=== PATIENT | female | born 1975 | race Caucasian/White ===

== ENCOUNTER 2017-02-21 19:04 | Emergency (ER) | payer SELFPAY | END 2017-02-21 19:49 | disposition left against medical advice (07) | LOC: EDUNIT# 19:04 → ER 19:06 | DX: R51 Headache (principal) ==

== ENCOUNTER 2017-09-07 07:26 | Emergency (ER) | payer SELFPAY ==
[~2017-09-07] VITALS: Ht 154.9 cm; Wt 63.5 kg
--- OUTSIDE RECORDS SUMMARY | 2017-09-07 07:32 | XMS REPORT | Continuity of Care Document ---
Author Author [facility] Address Unknown Phone Unavailable Allergies Active Description Code Type Severity Reaction Onset Reported/Identified Relationship to Patient Clinical Status Yes Penicillins Drug Allergy 04/24/2011 Yes Penicillins Drug Allergy N/A N/A 04/24/2011 Medications There is no data. Problems Date Dx Coded Attending Type Code Diagnosis Diagnosed By 11/08/2008 V74.5 visit for: screening exam bact/spirochetal venereal disease 11/08/2008 V74.5 visit for: screening exam bact/spirochetal venereal disease 11/08/2008 VIK MATTSON DO V74.5 visit for: screening exam bact/spirochetal venereal disease 11/08/2008 V74.5 visit for: screening exam bact/spirochetal venereal disease 11/08/2008 ULICES DOUGLAS APRN V74.5 visit for: screening exam bact/spirochetal venereal disease 11/08/2008 VIK MATTSON DO V74.5 visit for: screening exam bact/spirochetal venereal disease 11/08/2008 EL SPRINGER PSYD V74.5 visit for: screening exam bact/spirochetal venereal disease 04/24/2011 616.10 Vaginitis Vulvovaginitis Unspecified 04/24/2011 V65.45 Counseling - Std 04/24/2011 V69.5 BEHAVIOR INSOMNIA OF CHILDHOOD 04/24/2011 V76.2 CERVICAL CANCER SCREENING (PAP SMEAR) 04/24/2011 616.10 Vaginitis Vulvovaginitis Unspecified 04/24/2011 V65.45 Counseling - Std 04/24/2011 V69.5 BEHAVIOR INSOMNIA OF CHILDHOOD 04/24/2011 V76.2 CERVICAL CANCER SCREENING (PAP SMEAR) 04/24/2011 VIK MATTSON DO 616.10 Vaginitis Vulvovaginitis Unspecified 04/24/2011 VIK MATTSON DO V65.45 Counseling - Std 04/24/2011 VIK MATTSON DO V69.5 BEHAVIOR INSOMNIA OF CHILDHOOD 04/24/2011 VIK MATTSON DO V76.2 CERVICAL CANCER SCREENING (PAP SMEAR) 04/24/2011 616.10 Vaginitis Vulvovaginitis Unspecified 04/24/2011 V65.45 Counseling - Std 04/24/2011 V69.5 BEHAVIOR INSOMNIA OF CHILDHOOD 04/24/2011 V76.2 CERVICAL CANCER SCREENING (PAP SMEAR) 04/24/2011 GANESH DOUGLAS APRNIDI A 616.10 Vaginitis Vulvovaginitis Unspecified 04/24/2011 STELLA RECEPTION MANAGER, ULICES A V65.45 Counseling - Std 04/24/2011 STELLAGANESH Marie APRNIDI A V69.5 BEHAVIOR INSOMNIA OF CHILDHOOD 04/24/2011 STELLALEONIDAS CESPEDES ULICES A V76.2 CERVICAL CANCER SCREENING (PAP SMEAR) 04/24/2011 VIK MATTSON DO 616.10 Vaginitis Vulvovaginitis Unspecified 04/24/2011 VIK MATTSON DO V65.45 Counseling - Std 04/24/2011 VIK MATTSON DO V69.5 BEHAVIOR INSOMNIA OF CHILDHOOD 04/24/2011 VIK MATTSON DO V76.2 CERVICAL CANCER SCREENING (PAP SMEAR) 04/24/2011 EL SPRINGER PSYD 616.10 Vaginitis Vulvovaginitis Unspecified 04/24/2011 EL SPRINGER PSYD V65.45 Counseling - Std 04/24/2011 EL SPRINGER PSYD V69.5 BEHAVIOR INSOMNIA OF CHILDHOOD 04/24/2011 EL SPRINGER PSYD V76.2 CERVICAL CANCER SCREENING (PAP SMEAR) 05/19/2012 V58.69 LONG-TERM ( CURRENT) USE OF OTHER MEDICATIONS 05/19/2012 V58.69 LONG-TERM ( CURRENT) USE OF OTHER MEDICATIONS 05/19/2012 VIK MATTSON DO V58.69 LONG-TERM (CURRENT) USE OF OTHER MEDICATIONS 05/19/2012 V58.69 LONG-TERM ( CURRENT) USE OF OTHER MEDICATIONS 05/19/2012 ULICES DOUGLAS APRN V58.69 LONG-TERM (CURRENT) USE OF OTHER MEDICATIONS 05/19/2012 VIK MATTSON DO V58.69 LONG-TERM (CURRENT) USE OF OTHER MEDICATIONS 05/19/2012 EL SPRINGER PSYD V58.69 LONG-TERM (CURRENT) USE OF OTHER MEDICATIONS 07/01/2012 VIK MATTSON DO 008.8 GASTROENTERITIS, VIRAL 07/01/2012 008.8 GASTROENTERITIS, VIRAL 07/01/2012 ULICES DOUGLAS APRN A 008.8 GASTROENTERITIS, VIRAL 07/01/2012 VIK MATTSON DO 008.8 GASTROENTERITIS, VIRAL 07/01/2012 EL SPRINGER PSYD 008.8 GASTROENTERITIS, VIRAL 07/25/2012 465.9 UPPER RESPIRATORY INFECTION 07/25/2012 GANESH DOUGLAS APRNIDI A 465.9 UPPER RESPIRATORY INFECTION 07/25/2012 VIK MATTSON DO 465.9 UPPER RESPIRATORY INFECTION 07/25/2012 EL SPRINGER PSYD 465.9 UPPER RESPIRATORY INFECTION 05/06/2013 STELLAULICES LAUREN APRN A 623.5 LEUKORRHEA NOT SPECIFIED INFECTIVE 05/06/2013 GANESH DOUGLAS APRNIDI A V76.10 BREAST CANCER SCREENING 05/06/2013 VIK MATTSON DO 623.5 LEUKORRHEA NOT SPECIFIED INFECTIVE 05/06/2013 VIK MATTSON DO V76.10 BREAST CANCER SCREENING 05/06/2013 EL SPRINGER PSYD 623.5 LEUKORRHEA NOT SPECIFIED INFECTIVE 05/06/2013 EL SPRINGER PSYD V76.10 BREAST CANCER SCREENING 08/20/2013 VIK MATTSON DO 627.8 OTHER SPECIFIED MENOPAUSAL AND POSTMENOPAUSAL DISORDERS 08/20/2013 EL SPRINGER PSYD 627.8 OTHER SPECIFIED MENOPAUSAL AND POSTMENOPAUSAL DISORDERS 06/30/2014 EL SPRINGER PSYD 300.02 AN GEN ANXIETY 06/30/2014 EL SPRINGER PSYD 311 MO DEPRESS NOS 08/31/2015 CELINA DIAZ RECEPTION MANAGER Ot N92.6 08/31/2015 CELINA DIAZ RECEPTION MANAGER Ot R92.8 09/04/2015 CELINA DIAZ RECEPTION MANAGER Ot N92.6 09/04/2015 CELINA DIAZ RECEPTION MANAGER Ot R92.8 09/06/2015 CELINA DIAZ A RECEPTION MANAGER Ot N92.6 09/06/2015 CELINA DIAZ A RECEPTION MANAGER Ot R92.8 10/30/2015 CELINA DIAZ A RECEPTION MANAGER Ot N92.6 IRREGULAR MENSTRUATION, UNSPECIFIED 10/30/2015 CELINA DIAZ A RECEPTION MANAGER Ot R92.8 OTH ABN AND INCONCLUSIVE FINDINGS ON DX 11/21/2015 CELINA DIAZ A RECEPTION MANAGER Ot N92.6 IRREGULAR MENSTRUATION, UNSPECIFIED 11/21/2015 CELINA DIAZ A RECEPTION MANAGER Ot R92.8 OTH ABN AND INCONCLUSIVE FINDINGS ON DX 11/21/2015 JAKOPOCELINA REDDY A RECEPTION MANAGER Ot N92.6 IRREGULAR MENSTRUATION, UNSPECIFIED 11/21/2015 TAMMIOPOISAURO REDDYY A RECEPTION MANAGER Ot R92.8 OTH ABN AND INCONCLUSIVE FINDINGS ON DX 12/21/2015 CELINA DIAZ A RECEPTION MANAGER Ot N92.6 IRREGULAR MENSTRUATION, UNSPECIFIED 12/21/2015 CELINA DIAZ A RECEPTION MANAGER Ot R92.8 OTH ABN AND INCONCLUSIVE FINDINGS ON DX 02/21/2017 CELINA DIAZ A RECEPTION MANAGER Ot N92.6 IRREGULAR MENSTRUATION, UNSPECIFIED 02/21/2017 CELINA DIAZ A RECEPTION MANAGER Ot R92.8 OTH ABN AND INCONCLUSIVE FINDINGS ON DX 02/21/2017 OSMAN RODRÍGUEZ MD Ot R51 HEADACHE 02/21/2017 CELINA DIAZ A RECEPTION MANAGER Ot N92.6 IRREGULAR MENSTRUATION, UNSPECIFIED 02/21/2017 CELINA DIAZ A RECEPTION MANAGER Ot R92.8 OTH ABN AND INCONCLUSIVE FINDINGS ON DX 02/24/2017 ANNE JOHNSON, OSMAN Beck Ot R51 HEADACHE Procedures Code Description [place] [address] INFLUENZA A & B (IN-HOUSE) 07/25/2012 11831 GC/CHLAM PROBE ([facility]) 05/06/2013 86681 CULTURE UROGENITAL 05/09/2013 25371 TRICHOMONAS (IN-HOUSE) 05/10/2013 63658 PSYCH DIAGNOSTIC EVALUATION 06/30/2014 Results There is no data. Encounters ACCT No. Visit Date/Time Discharge Status Pt. Type Provider Facility Loc./Unit Complaint [id number] 06/30/2014 08:44:00 06/30/2014 23:59:59 CLS Outpatient EL SPRINGER PSYD [id number] 08/20/2013 14:31:00 08/20/2013 23:59:59 CLS Outpatient VIK MATTSON DO [id number] 05/06/2013 08:29:00 05/06/2013 23:59:59 CLS Outpatient ULICES DOUGLAS APRN [id number] 07/25/2012 12:53:00 07/25/2012 23:59:59 CLS Outpatient [id number] 07/01/2012 13:38:00 07/01/2012 23:59:59 [place] [id number] 05/19/2012 07:46:00 05/19/2012 23:59:59 CLS Outpatient [id number] 05/19/2012 07:46:00 05/19/2012 23:59:59 CLS Outpatient [id number] 02/21/2017 19:06:00 02/21/2017 19:49:00 DIS Emergency ANNE JOHNSON, OSMAN Beck [facility] ER HEADACHE [id number] 08/29/2015 14:08:00 08/29/2015 23:59:59 CLS Outpatient CELINA DIAZ APRN [facility] RAD IRREGULAR MENSES, SCREENING
[2017-09-07] MEDS ORDERED: ACET-2469 (07:48)
--- NOTE | 2017-09-07 07:55 | ED Back Pain ---
General Chief Complaint: Back Problems Stated Complaint: BACK PAIN Nursing Triage Note: ARRIVED VIA AMB TO ROOM 06 WITHOUT DIFFICULTY. COMPLAINS OF RIGHT SIDED BACK PAIN THAT RADIATES DOWN RIGHT LEG FOR MORE THEN A YEAR. STATES SHE THINKS SHE HAS BEEN TO THE DR FOR IT. WHEN ASKED WHAT MAKES IT DIFFERENT TODAY SHE SAID SHE CAN NOT WORK TODAY. Nursing Sepsis Screen: No Definite Risk Source of Information: Patient Exam Limitations: No Limitations History of Present Illness Date Seen by Provider: Sep 07, 2017 Time Seen by Provider: 07:35 Initial Comments Patient presents to the ER report conveyance with a chief complaint she's had back pain for the last 3 or 4 years. She thinks it was caused by a fall on the ice one year ago. She says the last 3 or 4 months she's had progressively worsening back pain now with some achy pain going down the back of her leg to about the level of her right knee that she only feels when she is asleep. She says she is a Tylenol PM to get to sleep and she knows she is in pain when she is asleep because her friends told her she moans. The patient does not use any NSAIDs. She has not had this back pain worked up. She's not had any numbness loss of incontinence, saddle anesthesia or falls. She says she went to a chiropractor last year and that helped. Allergies and Home Medications Allergies Coded Allergies: No Known Drug Allergies (Unverified , 09/07/17) Patient Home Medication List Home Medication List Reviewed: Yes Constitutional: No chills, No diaphoresis, No fever EENTM: No hearing loss, No ear pain Respiratory: No cough, No short of breath Cardiovascular: No chest pain, No palpitations Gastrointestinal: No abdominal pain, No constipation, No diarrhea, No nausea Genitourinary: No discharge, No dysuria : No (last menstrual period was several years ago) Control/STD Prophylaxis: None Musculoskeletal: back pain, No joint pain Past Jztufsg-Mznlwd-Mjhixx Hx Patient Social History Alcohol Use: Denies Use Recreational Drug Use: No Smoking Status: Never a Smoker Recent Foreign Travel: No Contact w/Someone Who Travel: No Recent Infectious Disease Expo: No Seasonal Allergies Seasonal Allergies: No Respiratory History of Respiratory Disorde: No Cardiovascular History of Cardiac Disorders: No Neurological History of Neurological Disord: No Genitourinary History of Genitourinary Disor: No Gastrointestinal History of Gastrointestinal Di: No Musculoskeletal History of Musculoskeletal Dis: No HEENT History of HEENT Disorders: No Cancer History of Cancer: No Psychosocial History of Psychiatric Problem: Yes Behavioral Health Disorders: Depression Integumentary History of Skin or Integumenta: No Physical Exam Vital Signs Vital Signs - First Documented 09/07/17 07:42 Temp 96.2 Pulse 61 Resp 18 B/P (MAP) 148/86 (106) Pulse Ox 98 Capillary Refill : Less Than 3 Seconds General Appearance: No Apparent Distress, WD/WN HEENT: PERRL/EOMI, Pharynx Normal Neck: Full Range of Motion, Normal Inspection, Non Tender Cardiovascular: Regular Rate, Rhythm, No Edema, Normal Peripheral Pulses Respiratory: No Accessory Muscle Use, No Respiratory Distress Gastrointestinal: Non Tender, Soft Back: Normal Inspection, Vertebral Tenderness (lumbar and right lumbar lateral tenderness to palpation.) Extremity: Normal Capillary Refill, No Pedal Edema Neurologic/Psychiatric: Alert, Oriented x3, Other (straight leg lift test negative for recreational of her pain when distracted) Skin: Normal Color, Warm/Dry Progress/Results/Core Measures Results/Orders Vital Signs/I&O Vital Sign - Last 12Hours 09/07/17 07:42 Temp 96.2 Pulse 61 Resp 18 B/P (MAP) 148/86 (106) Pulse Ox 98 Blood Pressure Mean: 106 Progress Note : Time: 07:53 Progress Note Patient states the reason she decided to get checked out now is because her friends told her she seems to be in pain when she is asleep although she is not aware of this personally without her friends advising her. She thinks she needs an x-ray to find out why she is having back pain. We have discussed appropriate pain management and NSAID use and will have her follow-up in 2-4 weeks after doing some scheduled NSAIDs. I offered to give her some steroids and she has declined them. We encouraged back brace, heating pads, icy hot, chiropractic, follow-up with the primary care physician. Departure Impression Impression: Primary Impression: Lumbago with sciatica, right side Qualified Codes: M54.41 - Lumbago with sciatica, right side; G89.29 - Other chronic pain Disposition: 01 HOME, SELF-CARE Condition: Stable Departure-Patient Inst. Decision time for Depature: 07:55 Referrals: BHUPENDRA FRANKS MD (PCP/Family) Primary Care Physician Patient Instructions: Low Back Pain (DC) Add. Discharge Instructions: Obtain a back brace and wear it on the days that it helps. Use creams such as Biofreeze or bulimia. Use the ibuprofen 800 mg every 8 hours for the next 2-4 weeks scheduled or you can use Naprosyn 2 capsules twice a day. He can also use Tylenol 1000 mg every 8 hours as needed for breakthrough pain. If you lose control of your bowels or bladder or you start having falls, numbness or other worrisome symptoms you should return to care. Plan to follow up with your primary care physician in the next 2-4 weeks. All discharge instructions reviewed with patient and/or family. Voiced understanding. Copy Copies To 1: VIK MATTSON TITUS J Sep 07, 2017 07:55
[2017-09-07 08:06] VITALS: BP 148/86
== END 2017-09-07 08:06 | disposition home or self-care (01) ==
LOC: EDUNIT# 07:26 → ER 07:27
DX: M54.41 Lumbago with sciatica, right side (principal); F32.9 Major depressive disorder, single episode, unspecified
CPT/HCPCS: 99281

== ENCOUNTER 2018-12-02 22:31 | Emergency (ER) | payer SELFPAY ==
[~2018-12-02] VITALS: Ht 154.9 cm; Wt 68.0 kg
[~2018-12-02 22:31] MED LIST: ACET-2469
--- OUTSIDE RECORDS SUMMARY | 2018-12-02 22:36 | XMS REPORT ---
Author DESTINEE Schaefer [facility] Address [address] [place], [place] [id number] Care Team Providers Care Contact Printer Dry Film Name Role Phone DESTINEE MEZA PCP DESTINEE MEZA PreferredProvider Allergies and Adverse Reactions Not available. Plan of Treatment Not available. Medications Not available. Problem List Not available. Vital Signs Date Time BP-Sys(mm[Hg] BP-Penny(mm[Hg]) HR(bpm) RR(rpm) Temp WT HT HC BMI BSA BMI Percentile O2 Sat(%) 02/16/2018 10:25:00 AM 110 mmHg 76 mmHg 68 bpm 18 rpm 98.2 F 150 lbs 64 in 25.7472 kg/m 1.7528 m 98 % Social History Not available. History of Procedures Not available. Results Summary Not available. History Of Immunizations Not available. History of Past Illness Name Date of Onset Comments Encounter for physical examination related to employment Feb 16 2018 10:26AM Payers Insurance Name Company Name Plan Name Plan Number Policy Number Policy Group Number Start Date [facility] Occupational Medicine [id number] N/A History of Encounters Visit Date Visit Type Provider 02/16/2018 Office visit DESTINEE AVILA
--- OUTSIDE RECORDS SUMMARY | 2018-12-02 22:37 | XMS REPORT ---
Author Author Migration, Doctor Organization [facility] Address Unknown Phone Unavailable Care Team Providers Care Trailer Park Manager Name Role Phone Migration, Doctor Unavailable Unavailable PROBLEMS Type Condition ICD9-CM Code TCU47-MR Code Onset Dates Condition Status SNOMED Code Problem History of genital warts Z86.19 Active 362027444 Problem Family history of diabetes mellitus Z83.3 Active 126875629 Problem Generalized anxiety disorder F41.1 Active 765059050 Problem Depressive disorder F32.9 Active 23482555 Problem Dense breast tissue R92.2 Active 119814451 ALLERGIES No Information ENCOUNTERS Encounter Location Date Diagnosis [place] [id number] [place] [phone] 08 Jun, 2018 Generalized anxiety disorder F41.1 and Depressive disorder F32.9 [place] [id number] [place] [phone] 10 May, 2018 Generalized anxiety disorder F41.1 [facility] [place] [id number] [place] [phone] 14 Mar, 2018 [place] [id number] [place] [phone] Dec, Generalized anxiety disorder F41.1 ; Depressive disorder F32.9 and Iliotibial band syndrome affecting right lower leg M76.31 [facility] [id number] [place] [phone] 05 Jul, 2017 Gastroenteritis K52.9 [facility] [place] [id number] [place] [phone] 13 May, 2017 Pharyngitis due to other organism J02.8 [place] [id number] [place] [phone] 14 Aug, 2015 Yeast infection B37.9 [place] [id number] [address] 10 Aug, 2015 [facility] [address] [place] [address] 08 Aug, 2015 Screening for malignant neoplasm of breast Z12.39 [facility] [address] [place] [phone] 07 Aug, 2015 Well woman exam Z01.419 ; Other fatigue R53.83 ; Irregular menses N92.6 ; Family history of diabetes mellitus Z83.3 and BMI 25.0-25.9,adult Z68.25 [place] [address] [place] [address] 03 Aug, 2015 Well woman exam Z01.419 ; Encounter for screening for malignant neoplasm of cervix Z12.4 ; Family history of diabetes mellitus Z83.3 ; BMI 25.0- 25.9,adult Z68.25 ; Screening for malignant neoplasm of breast Z12.39 ; Other fatigue R53.83 ; Irregular menses N92.6 ; Routine screening for STI (sexually transmitted infection) Z11.3 ; Dense breast tissue R92.2 and History of genital warts Z86.19 [place] [address] [place] [phone] 14 Sep, 2014 [place] [address] [place] [phone] Sep, [place] [address] [place] [address] Jul, [facility] [address] [place] [address] Jul, [facility] [id number] [place] [address] Jul, [facility] [id number] [place] [address] Jul, [facility] [address] [place] [address] Jun, [facility] [place] [facility] [address] [id number] [place] [address] Jun, [facility] [place] [facility] [address] [id number] [place] [address] Aug, [facility] [place] [facility] [address] [id number] [place] [address] Aug, [facility] [place] [facility] [address] [id number] [place] [address] Jul, [facility] [place] [facility] [address] [id number] [place] [address] Jul, [facility] [place] [facility] [address] [id number] [place] [address] Apr, [facility] [place] [facility] [address] [id number] [place] [address] Apr, [facility] [place] [facility] [address] [id number] [place] [address] Apr, [facility] [place] [facility] [address] [id number] [place] [address] Apr, [facility] [place] [facility] [address] [id number] [place] [address] Apr, [facility] [place] [facility] [address] [id number] [place] [address] Apr, [facility] [place] [facility] [address] [id number] [place] [address] Jul, [facility] [place] [facility] [address] [id number] [place] [address] Jul, [facility] [place] [facility] [address] [id number] [place] [address] Jun, [facility] [place] [facility] [address] [id number] [place] [address] Jun, [facility] [place] [facility] [address] [facility] [id number] [address] May, [facility] [id number] [address] May, [facility] [address] [address] Apr, [facility] [id number] [address] Apr, [facility] [address] [address] Apr, [facility] [id number] [address] Apr, [facility] [id number] [address] October, IMMUNIZATIONS No Known Immunizations SOCIAL HISTORY Never Assessed REASON FOR VISIT EMR-[facility] PLAN OF CARE VITAL SIGNS MEDICATIONS No Known Medications RESULTS No Results PROCEDURES No Known procedures INSTRUCTIONS MEDICATIONS ADMINISTERED No Known Medications MEDICAL (GENERAL) HISTORY Type Description Date Medical History heart murmur Surgical History tonsillectomy Surgical History myringotomy with ventilating tube Surgical History Lifting of eye lids Surgical History cholecystectomy Hospitalization History Surgeries only
--- OUTSIDE RECORDS SUMMARY | 2018-12-02 22:37 | XMS REPORT ---
Author Author DESTINEE CHIRINOS Organization [facility] [place] Address [address] [place] [address] Care Team Providers Care Teacher Resource Name Role Phone DESTINEE CHIRINOS Unavailable PROBLEMS Type Condition ICD9-CM Code [id number] Code Onset Dates Condition Status SNOMED Code Problem Family history of diabetes mellitus Z83.3 Active 904579138 Problem History of genital warts Z86.19 Active 946597009 Problem Generalized anxiety disorder F41.1 Active 215284741 Problem Dense breast tissue R92.2 Active 296893237 Problem Depressive disorder F32.9 Active 64545192 ALLERGIES No Information ENCOUNTERS Encounter Location Date Diagnosis [facility] [place] [address] [address] 18 May, 2018 [facility] [place] [address] [address] 10 May, 2018 Generalized anxiety disorder F41.1 [facility] [address] [address] 14 Mar, 2018 [facility] [place] [id number] [place] [address] 24 Dec, 2017 Generalized anxiety disorder F41.1 ; Depressive disorder F32.9 and Iliotibial band syndrome affecting right lower leg M76.31 [facility] [id number] [place] [address] 05 Jul, 2017 Gastroenteritis K52.9 [facility] [address] [address] 13 May, 2017 Pharyngitis due to other organism J02.8 [facility] [place] [address] [address] 14 Aug, 2015 Yeast infection B37.9 [facility] [place] [address] [address] 10 Aug, 2015 [facility] [place] [id number] [place] [address] 08 Aug, 2015 Screening for malignant neoplasm of breast Z12.39 [facility] [place] [address] [place] [address] 07 Aug, 2015 Well woman exam Z01.419 ; Other fatigue R53.83 ; Irregular menses N92.6 ; Family history of diabetes mellitus Z83.3 and BMI 25.0-25.9,adult Z68.25 [place] [id number] [place] [address] 03 Aug, 2015 Well woman exam Z01.419 [...] R92.2 and History of genital warts Z86.19 [place] [address] [place] [address] 14 Sep, 2014 [place] [address] [place] [address] Sep, [place] [id number] [place] [address] Jul, [place] [address] [place] [address] Jul, [place] [id number] [place] [address] Jul, [facility] [place] [address] [place] [address] Jul, [facility] [place] [id number] [place] [address] [place] [address] Jun, [facility] [address] [id number] [place] [address] Jun, [facility] [place] [facility] [address] [id number] [place] [address] Aug, [facility] [place] [facility] [address] [id number] [place] [address] Aug, [facility] [place] [facility] [address] [id number] [place] [address] Jul, [facility] [place] [facility] [address] [id number] [place] [address] Jul, [facility] [place] [facility] [address] [id number] [place] [address] Apr, [facility] [place] [facility] [address] [id number] [place] [address] Apr, [facility] [place] [facility] [address] [id number] [place] [address] Apr, [facility] [place] [facility] [address] [id number] [place] [address] Apr, [facility] [place] [facility] [address] [id number] [place] [address] Apr, [facility] [place] [facility] [address] [id number] [place] [address] Apr, [facility] [place] [facility] [address] [id number] [place] [address] Jul, [facility] [place] [facility] [address] [id number] [place] [address] Jul, [facility] [place] [facility] [address] [id number] [place] [address] Jun, [facility] [place] [facility] [address] [id number] [place] [address] Jun, [facility] [place] [address] [facility] [id number] [address] May, [facility] [place] [id number] [address] May, [facility] [place] [id number], [place] [address] Apr, [facility] [place] [address], [place] [address] Apr, [facility] [place] [id number], [place] [address] Apr, [facility] [place] [address], [place] [address] Apr, [facility] [place] [address], [place] [address] October, IMMUNIZATIONS No Known Immunizations SOCIAL HISTORY Never Assessed REASON FOR VISIT med f/u PLAN OF CARE VITAL SIGNS MEDICATIONS Medication Instructions Dosage Frequency Start Date End Date Duration Status Lexapro 10 mg Orally Once a day 1 tablet 24h 30 days Active RESULTS No Results PROCEDURES No Known procedures INSTRUCTIONS MEDICATIONS ADMINISTERED No Known Medications MEDICAL (GENERAL) HISTORY Type Description Date Medical History heart murmur Surgical History tonsillectomy Surgical History myringotomy with ventilating tube Surgical History Lifting of eye lids Surgical History cholecystectomy Hospitalization History Surgeries only
--- OUTSIDE RECORDS SUMMARY | 2018-12-02 22:37 | XMS REPORT ---
Author Author Migration, Doctor Organization [facility] Address Unknown Phone Unavailable Care Team Providers Care Strategy Director Name Role Phone Migration, Doctor Unavailable Unavailable PROBLEMS Type Condition ICD9-CM Code PYM38-GE Code Onset Dates Condition Status SNOMED Code Problem History of genital warts Z86.19 Active 951758621 Problem Family history of diabetes mellitus Z83.3 Active 135418065 Problem Generalized anxiety disorder F41.1 Active 788558456 Problem Depressive disorder F32.9 Active 57027579 Problem Dense breast tissue R92.2 Active 565636556 ALLERGIES No Information ENCOUNTERS Encounter Location Date Diagnosis [place] [id number] [place] [address] 08 Jun, 2018 Generalized anxiety disorder F41.1 and Depressive disorder F32.9 [place] [id number] [place] [address] 10 May, 2018 Generalized anxiety disorder F41.1 [facility] [place] [id number] [place] [address] 14 Mar, 2018 [place] [id number] [place] [address] 24 Dec, 2017 Generalized anxiety disorder F41.1 ; Depressive disorder F32.9 and Iliotibial band syndrome affecting right lower leg M76.31 [facility] [id number] [place] [address] 05 Jul, 2017 Gastroenteritis K52.9 [facility] [place] [id number] [place] [address] 13 May, 2017 Pharyngitis due to other organism J02.8 [place] [id number] [place] [address] 14 Aug, 2015 Yeast infection B37.9 [place] [address] [id number] [address] 10 Aug, 2015 [facility] [address] [place] [address] 08 Aug, 2015 Screening for malignant neoplasm of breast Z12.39 [facility] [address] [place] [address] 07 Aug, 2015 Well woman exam Z01.419 ; Other fatigue R53.83 ; Irregular menses N92.6 ; Family history of diabetes mellitus Z83.3 and BMI 25.0-25.9,adult Z68.25 [place] [address] [place] [address] 03 Aug, 2015 Well woman exam Z01.419 [...] R92.2 and History of genital warts Z86.19 [place] [address] [place] [address] 14 Sep, 2014 [place] [address] [place] [address] Sep, [place] [address] [place] [address] Jul, [facility] [address] [place] [address] Jul, [facility] [id number] [place] [address] Jul, [facility] [id number] [place] [address] Jul, [facility] [address] [place] [address] Jun, [facility] [place] [facility] [address] [id number] [place] [address] Jun, [facility] [place] [facility] [address] [id number] [place] [address] Aug, [facility] [place] [facility] [address] [id number] [place] [address] Aug, [facility] [place] [facility] [address] [id number] [place] [address] Jul, [facility] [place] [facility] [address] [id number] [place] [address] Jul, [facility] [place] [facility] [address] [id number] [place] [address] Apr, [facility] [place] [facility] [address] [id number] [place] [address] Apr, [facility] [place] [facility] [address] [id number] [place] [address] Apr, [facility] [place] [facility] [address] [id number] [place] [address] Apr, [facility] [place] [facility] [address] [id number] [place] [address] Apr, [facility] [place] [facility] [address] [id number] [place] [address] Apr, [facility] [place] [facility] [address] [id number] [place] [address] Jul, [facility] [place] [facility] [address] [id number] [place] [address] Jul, [facility] [place] [facility] [address] [id number] [place] [address] Jun, [facility] [place] [facility] [address] [id number] [place] [address] Jun, [facility] [place] [facility] [address] [facility] [id number] [address] May, [facility] [id number] [address] May, [facility] [address], [place] [address] Apr, [facility] [id number], [place] [address] Apr, [facility] [address], [place] [address] Apr, [facility] [id number], [place] [address] Apr, [facility] [id number], [place] [address] October, IMMUNIZATIONS No Known Immunizations SOCIAL HISTORY Never Assessed REASON FOR VISIT EMR-[facility] PLAN OF CARE VITAL SIGNS MEDICATIONS No Known Medications RESULTS No Results PROCEDURES No Known procedures INSTRUCTIONS MEDICATIONS ADMINISTERED No Known Medications MEDICAL (GENERAL) HISTORY Type Description Date Medical History heart murmur Surgical History tonsillectomy Surgical History myringotomy with ventilating tube Surgical History Lifting of eye lids Surgical History cholecystectomy Hospitalization History Surgeries only
--- OUTSIDE RECORDS SUMMARY | 2018-12-02 22:37 | XMS REPORT ---
Author Author Migration, Doctor Organization [facility] Address Unknown Phone Unavailable Care Team Providers Care Fiberglass Model Maker Name Role Phone Migration, Doctor Unavailable Unavailable PROBLEMS Type Condition ICD9-CM Code [id number] Code Onset Dates Condition Status SNOMED Code Problem History of genital warts Z86.19 Active 216985116 Problem Family history of diabetes mellitus Z83.3 Active 736206498 Problem Generalized anxiety disorder F41.1 Active 803522203 Problem Depressive disorder F32.9 Active 96733957 Problem Dense breast tissue R92.2 Active 427456054 ALLERGIES No Information ENCOUNTERS Encounter Location Date Diagnosis [place] [id number] [place] [address] 08 Jun, 2018 Generalized anxiety disorder F41.1 and Depressive disorder F32.9 [place] [id number] [place] [address] 10 May, 2018 Generalized anxiety disorder F41.1 [facility] [place] [id number] [place] [address] 14 Mar, 2018 [place] [id number] [place] [address] 24 Dec, 2017 Generalized anxiety disorder F41.1 ; Depressive disorder F32.9 and Iliotibial band syndrome affecting right lower leg M76.31 [facility] [id number] [place] [address] 05 Jul, 2017 Gastroenteritis K52.9 [facility] [place] [id number] [place] [address] 13 May, 2017 Pharyngitis due to other organism J02.8 [place] [id number] [place] [address] 14 Aug, 2015 Yeast infection B37.9 [place] [address] [id number] [address] 10 Aug, 2015 [facility] [address] [place] [address] 08 Aug, 2015 Screening for malignant neoplasm of breast Z12.39 [facility] [address] [place] [address] 07 Aug, 2015 Well woman exam Z01.419 ; Other fatigue R53.83 ; Irregular menses N92.6 ; Family history of diabetes mellitus Z83.3 and BMI 25.0-25.9,adult Z68.25 [place] [address] [place] [address] 03 Aug, 2015 Well woman exam Z01.419 [...] R92.2 and History of genital warts Z86.19 [place] [address] [place] [address] 14 Sep, 2014 [place] [address] [place] [address] Sep, [place] [address] [place] [address] Jul, [facility] [address] [place] [address] Jul, [facility] [id number] [place] [address] Jul, [facility] [id number] [place] [address] Jul, [facility] [address] [place] [address] Jun, [facility] [place] [facility] [address] [id number] [place] [address] Jun, [facility] [place] [facility] [address] [id number] [place] [address] Aug, [facility] [place] [facility] [address] [id number] [place] [address] Aug, [facility] [place] [facility] [address] [id number] [place] [address] Jul, [facility] [place] [facility] [address] [id number] [place] [address] Jul, [facility] [place] [facility] [address] [id number] [place] [address] Apr, [facility] [place] [facility] [address] [id number] [place] [address] Apr, [facility] [place] [facility] [address] [id number] [place] [address] Apr, [facility] [place] [facility] [address] [id number] [place] [address] Apr, [facility] [place] [facility] [address] [id number] [place] [address] Apr, [facility] [place] [facility] [address] [id number] [place] [address] Apr, [facility] [place] [facility] [address] [id number] [place] [address] Jul, [facility] [place] [facility] [address] [id number] [place] [address] Jul, [facility] [place] [facility] [address] [id number] [place] [address] Jun, [facility] [place] [facility] [address] [id number] [place] [address] Jun, [facility] [place] [facility] [address] [facility] [id number] [address] May, [facility] [id number] [address] May, [facility] [address], [place] [address] Apr, [facility] [id number] [address] Apr, [facility] [address] [address] Apr, [facility] [id number] [address] Apr, [facility] [id number] [address] October, IMMUNIZATIONS No Known Immunizations SOCIAL HISTORY Never Assessed REASON FOR VISIT EMR-[facility] [place] PLAN OF CARE VITAL SIGNS MEDICATIONS No Known Medications RESULTS No Results PROCEDURES No Known procedures INSTRUCTIONS MEDICATIONS ADMINISTERED No Known Medications MEDICAL (GENERAL) HISTORY Type Description Date Medical History heart murmur Surgical History tonsillectomy Surgical History myringotomy with ventilating tube Surgical History Lifting of eye lids Surgical History cholecystectomy Hospitalization History Surgeries only
--- OUTSIDE RECORDS SUMMARY | 2018-12-02 22:37 | XMS REPORT ---
Author Author Migration, Doctor Organization [facility] Address Unknown Phone Unavailable Care Team Providers Care Academic Services Coordinator Name Role Phone Migration, Doctor Unavailable Unavailable PROBLEMS Type Condition ICD9-CM Code [id number] Code Onset Dates Condition Status SNOMED Code Problem History of genital warts Z86.19 Active 557846743 Problem Family history of diabetes mellitus Z83.3 Active 263862623 Problem Generalized anxiety disorder F41.1 Active 627292404 Problem Depressive disorder F32.9 Active 85868230 Problem Dense breast tissue R92.2 Active 443158067 ALLERGIES No Information ENCOUNTERS Encounter Location Date Diagnosis [place] [id number] [place] [address] 08 Jun, 2018 Generalized anxiety disorder F41.1 and Depressive disorder F32.9 [place] [id number] [place] [address] 10 May, 2018 Generalized anxiety disorder F41.1 [facility]ALK [facility] [place] [id number] [place] [address] 14 Mar, 2018 [place] [id number] [place] [address] 24 Dec, 2017 Generalized anxiety disorder F41.1 ; Depressive disorder F32.9 and Iliotibial band syndrome affecting right lower leg M76.31 [facility] [id number] [place] [address] 05 Jul, 2017 Gastroenteritis K52.9 [facility] [place] [id number] [place] [address] 13 May, 2017 Pharyngitis due to other organism J02.8 [place] [id number] [place] [address] 14 Aug, 2015 Yeast infection B37.9 [place] [address] [place], [place] [address] 10 Aug, 2015 [facility] [address] [place] [address] 08 Aug, 2015 Screening for malignant neoplasm of breast Z12.39 [facility] [address] [place] [address] 07 Aug, 2015 Well woman exam Z01.419 ; Other fatigue R53.83 ; Irregular menses N92.6 ; Family history of diabetes mellitus Z83.3 and BMI 25.0-25.9,adult Z68.25 [place] [address] [place] [address] 03 Aug, 2015 Well woman exam Z01.419 [...] R92.2 and History of genital warts Z86.19 [place] [address] [place] [address] 14 Sep, 2014 [place] [address] [place] [address] Sep, [place] [address] [place] [address] Jul, [facility] [address] [place] [address] Jul, [facility] [id number] [place] [address] Jul, [facility] [id number] [place] [address] Jul, [facility] [address] [place] [address] Jun, [facility] [place] [facility] [address] [id number] [place] [address] Jun, [facility] [place] [facility] [address] [id number] [place] [address] Aug, [facility] [place] [facility] [address] [id number] [place] [address] Aug, [facility] [place] [facility] [address] [id number] [place] [address] Jul, [facility] [place] [facility] [address] [id number] [place] [address] Jul, [facility] [place] [facility] [address] [id number] [place] [address] Apr, [facility] [place] [facility] [address] [id number] [place] [address] Apr, [facility] [place] [facility] [address] [id number] [place] [address] Apr, [facility] [place] [facility] [address] [id number] [place] [address] Apr, [facility] [place] [facility] [address] [id number] [place] [address] Apr, [facility] [place] [facility] [address] [id number] [place] [address] Apr, [facility] [place] [facility] [address] [id number] [place] [address] Jul, [facility] [place] [facility] [address] [id number] [place] [address] Jul, [facility] [place] [facility] [address] [id number] [place] [address] Jun, [facility] [place] [facility] [address] [id number] [place] [address] Jun, [facility] [place] [facility] [address] [facility] [id number], [place] [address] May, [facility] [address] [id number] [address] May, [facility] [address] [id number], [place] [address] Apr, [facility] [address] [facility] [id number], [place] [address] Apr, [facility] [address] [id number], [place] [address] Apr, [facility] [id number], [place] [address] Apr, [facility] [address] [id number], [place] [address] October, IMMUNIZATIONS No Known Immunizations SOCIAL HISTORY Never Assessed REASON FOR VISIT [facility] [place] PLAN OF CARE VITAL SIGNS MEDICATIONS Medication Instructions Dosage Frequency Start Date End Date Duration Status Effexor XR 75 mg 1 capsule by Oral route 1 time per day take with dinner Jul, Active RESULTS No Results PROCEDURES No Known procedures INSTRUCTIONS MEDICATIONS ADMINISTERED No Known Medications MEDICAL (GENERAL) HISTORY Type Description Date Medical History heart murmur Surgical History tonsillectomy Surgical History myringotomy with ventilating tube Surgical History Lifting of eye lids Surgical History cholecystectomy Hospitalization History Surgeries only
--- OUTSIDE RECORDS SUMMARY | 2018-12-02 22:38 | XMS REPORT ---
Author Author DESTINEE CHIRINOS Organization [facility] Address [address] [place] [address] Care Team Providers Care Printed Circuit Board Reworker Name Role Phone DESTINEE CHIRINOS Unavailable PROBLEMS Type Condition ICD9-CM Code [id number] Code Onset Dates Condition Status SNOMED Code Problem Family history of diabetes mellitus Z83.3 Active 081568822 Problem History of genital warts Z86.19 Active 456763643 Problem Generalized anxiety disorder F41.1 Active 746535536 Problem Dense breast tissue R92.2 Active 954808535 Problem Depressive disorder F32.9 Active 63850289 ALLERGIES Substance Reaction Event Type Date Status Penicillin G Sodium Unknown Drug Allergy Dec, Active anesthesia Unknown Non Drug Allergy Dec, Active ENCOUNTERS Encounter Location Date Diagnosis [place] [id number] [place] [address] Dec, Generalized anxiety disorder F41.1 ; Depressive disorder F32.9 and Iliotibial band syndrome affecting right lower leg M76.31 [facility] [address] [place] [address] 05 Jul, 2017 Gastroenteritis K52.9 [facility] [id number] [place] [address] 13 May, 2017 Pharyngitis due to other organism J02.8 [facility] [id number] [place] [address] 14 Aug, 2015 Yeast infection B37.9 [place] [id number] [place] [address] 10 Aug, 2015 [place] [id number] [place] [address] 08 Aug, 2015 Screening for malignant neoplasm of breast Z12.39 [place] [address] [address] 07 Aug, 2015 Well woman exam Z01.419 ; Other fatigue R53.83 ; Irregular menses N92.6 ; Family history of diabetes mellitus Z83.3 and BMI 25.0-25.9,adult Z68.25 [facility] [address] [address] 03 Aug, 2015 Well woman exam Z01.419 [...] R92.2 and History of genital warts Z86.19 [facility] [address] [place] [address] 14 Sep, 2014 [facility] [address] [address] Sep, [facility] [address] [address] Jul, [facility] [address] [address] Jul, [facility] [address] [address] Jul, [facility] [address] [address] Jul, [facility] [address] [address] Jun, [facility] [address] [address] Jun, [facility] [address] [address] Aug, [facility] [address] [id number] [place] [address] Aug, [facility] [place] [facility] [address] [id number] [place] [address] Jul, [facility] [place] [facility] [address] [id number] [place] [address] Jul, [facility] [place] [facility] [address] [id number] [place] [address] Apr, [facility] [place] [facility] [address] [id number] [place] [address] Apr, [facility] [place] [facility] [address] [id number] [place] [address] Apr, [facility] [place] [facility] [address] [id number] [place] [address] Apr, [facility] [place] [facility] [address] [id number] [place] [address] Apr, [facility] [place] [facility] [address] [id number] [place] [address] Apr, [facility] [place] [facility] [address] [id number] [place] [address] Jul, [facility] [place] [facility] [address] [id number] [place] [address] Jul, [facility] [place] [facility] [address] [id number] [place] [address] Jun, [facility] [place] [facility] [address] [id number] [place] [address] Jun, [facility] [place] [facility] [address] [id number] [place] [address] May, [facility] [place] [facility] [address] [id number] [place] [address] May, [facility] [place] [facility] [address] [facility] [id number] [place] [address] Apr, [facility] [address] [facility] [id number] [place] [address] Apr, [facility] [address] [facility] [id number] [address] Apr, [facility] [address] [facility] [id number] [place] [address] Apr, [facility] [address] [facility] [id number] [place] [address] October, IMMUNIZATIONS No Known Immunizations SOCIAL HISTORY Never Assessed REASON FOR VISIT Establish Care Leonora PLAN OF CARE Activity Details Follow Up prn Reason:iliotibial band syndrome pain VITAL SIGNS Height 61 in 2018-01-13 Weight 146.1 lbs 2018-01-13 Temperature 97.8 degrees Fahrenheit 2018-01-13 Heart Rate 76 bpm 2018-01-13 Respiratory Rate 20 2018-01-13 BMI 27.60 kg/m2 2018-01-13 Blood pressure systolic 128 mmHg 2018-01-13 Blood pressure diastolic 84 mmHg 2018-01-13 MEDICATIONS Medication Instructions Dosage Frequency Start Date End Date Duration Status Lexapro 10 mg Orally Once a day 1 tablet 24h 30 days Active PredniSONE 20 mg Orally Once a day 2 tablets 24h 05 days Active RESULTS No Results PROCEDURES No Known procedures INSTRUCTIONS MEDICATIONS ADMINISTERED No Known Medications MEDICAL (GENERAL) HISTORY Type Description Date Medical History heart murmur Surgical History tonsillectomy Surgical History myringotomy with ventilating tube Surgical History Lifting of eye lids Surgical History cholecystectomy Hospitalization History Surgeries only
--- OUTSIDE RECORDS SUMMARY | 2018-12-02 22:38 | XMS REPORT ---
Author Author FLORES MCKINLEY Organization [facility] Address [address] [place] [address] Care Team Providers Care Auto Air Conditioning Apprentice Name Role Phone ARLEN FLORES Unavailable PROBLEMS Type Condition ICD9-CM Code SFJ38-MD Code Onset Dates Condition Status SNOMED Code Problem Depressive disorder F32.9 Active 85061591 Problem Family history of diabetes mellitus Z83.3 Active 005229206 Problem Irregular menses N92.6 Active 72164356 Problem Generalized anxiety disorder F41.1 Active 688744212 Problem Intestinal infection A09 Active 911890215 Problem History of genital warts Z86.19 Active 536391030 Problem Dense breast tissue R92.2 Active 224772730 ALLERGIES Substance Reaction Event Type Date Status Penicillin G Sodium Unknown Drug Allergy May, Active anesthesia Unknown Non Drug Allergy May, Active ENCOUNTERS Encounter Location Date Diagnosis [facility] [id number] [place] [address] 05 Jul, 2017 Gastroenteritis K52.9 [facility] [id number] [place] [address] 13 May, 2017 Pharyngitis due to other organism J02.8 [facility] [address] [place] [id number] [place] [address] 14 Aug, 2015 Yeast infection B37.9 [facility] [id number] [place] [address] 10 Aug, [address] [address] 08 Aug, 2015 Screening for malignant neoplasm of breast Z12.39 [place] [id number] [place] [address] 07 Aug, 2015 Well woman exam Z01.419 ; Other fatigue R53.83 ; Irregular menses N92.6 ; Family history of diabetes mellitus Z83.3 and BMI 25.0-25.9,adult Z68.25 [facility] [id number] [place] [address] 03 Aug, 2016 Well woman exam Z01.419 ; Encounter for screening for malignant neoplasm of cervix Z12.4 ; Family history of diabetes mellitus Z83.3 ; BMI 25.0- 25.9,adult Z68.25 ; Screening for malignant neoplasm of breast Z12.39 ; Other fatigue R53.83 ; Irregular menses N92.6 ; Routine screening for STI (sexually transmitted infection) Z11.3 ; Dense breast tissue R92.2 and History of genital warts Z86.19 [facility] [address] [address] 14 Sep, 2014 [facility] [id number] [address] Sep, [facility] [id number] [place] [address] Jul, [facility] [address], [place] [address] Jul, [facility] [id number], [place] [address] Jul, [facility] [address], [place] [address] Jul, [facility] [address], [place] [address] Jun, [facility] [address], [place] [address] Jun, [facility] [address] [place] [address] Aug, [facility] [address], [place] [address] Aug, [facility] [address] [id number] [place] [address] Jul, [facility] [address] [id number] [place] [address] Jul, [facility] [place] [facility] [address] [id number] [place] [address] Apr, [facility] [place] [facility] [address] [id number] [place] [address] Apr, [facility] [place] [facility] [address] [id number] [place] [address] Apr, [facility] [place] [facility] [address] [id number] [place] [address] Apr, [facility] [place] [facility] [address] [id number] [place] [address] Apr, [facility] [place] [facility] [address] [id number] [place] [address] Apr, [facility] [place] [facility] [address] [id number] [place] [address] Jul, [facility] [place] [facility] [address] [id number] [place] [address] Jul, [facility] [place] [facility] [address] [id number] [place] [address] Jun, [facility] [place] [facility] [address] [id number] [place] [address] Jun, [facility] [place] [facility] [address] [id number] [place] [address] May, [facility] [place] [facility] [address] [id number] [place] [address] May, [facility] [place] [facility] [address] [id number] [place] [address] Apr, [facility] [place] [facility] [address] [id number] [place] [address] Apr, [facility] [address] [facility] [id number] [place] [address] Apr, [facility] [address] [facility] [id number] [address] Apr, [facility] [address] [facility] [id number] [place] [address] October, IMMUNIZATIONS No Known Immunizations SOCIAL HISTORY Never Assessed REASON FOR VISIT Headache, sore throat, sneezing [facility] VITAL SIGNS Height 61 in 2017-06-04 Weight 144.4 lbs 2017-06-04 Temperature 99.2 degrees Fahrenheit 2017-06-04 Heart Rate 66 bpm 2017-06-04 Respiratory Rate 18 2017-06-04 BMI 27.28 kg/m2 2017-06-04 Blood pressure systolic 120 mmHg 2017-06-04 Blood pressure diastolic 76 mmHg 2017-06-04 MEDICATIONS Medication Instructions Dosage Frequency Start Date End Date Duration Status Effexor XR 75 mg 1 capsule by Oral route 1 time per day take with dinner Jul, Not-Taking NyQuil Active Lexapro 10 MG Orally Once a day 1 tablet 24h Active Bactrim DS 800-160 MG Orally Twice a day 1 tablet 12h May, May, 10 day(s) Active Diflucan 150 MG Orally Once 1 tablet Aug, 1 dose Not-Taking RESULTS No Results PROCEDURES No Known procedures INSTRUCTIONS MEDICATIONS ADMINISTERED No Known Medications MEDICAL (GENERAL) HISTORY Type Description Date Medical History heart murmur Surgical History tonsillectomy Surgical History myringotomy with ventilating tube Surgical History Lifting of eye lids Surgical History cholecystectomy Hospitalization History Surgeries only
--- OUTSIDE RECORDS SUMMARY | 2018-12-02 22:38 | XMS REPORT ---
Author Author VIK MATTSON [facility] Address [address] [place] [address] Care Team Providers Care Test Borer Name Role Phone SRINIVASAN VIK Unavailable PROBLEMS Type Condition ICD9-CM Code [id number] Code Onset Dates Condition Status SNOMED Code Problem Family history of diabetes mellitus Z83.3 Active 070714183 Problem History of genital warts Z86.19 Active 374989152 Problem Generalized anxiety disorder F41.1 Active 097721945 Problem Dense breast tissue R92.2 Active 696643167 Problem Depressive disorder F32.9 Active 66080028 ALLERGIES No Information ENCOUNTERS Encounter Location Date Diagnosis [facility] [address] [address] 14 Mar, [address] [address] 24 Dec, 2017 Generalized anxiety disorder F41.1 ; Depressive disorder F32.9 and Iliotibial band syndrome affecting right lower leg M76.31 [facility] [id number] [place] [address] 05 Jul, 2017 Gastroenteritis K52.9 [facility] [address] [address] 13 May, 2017 Pharyngitis due to other organism J02.8 [facility] [address] [address] 14 Aug, 2015 Yeast infection B37.9 [facility] [address] [address] 10 Aug, 2015 [facility] [address] [address] 08 Aug, 2015 Screening for malignant neoplasm of breast Z12.39 [facility] [address] [address] 07 Aug, 2015 Well woman exam Z01.419 ; Other fatigue R53.83 ; Irregular menses N92.6 ; Family history of diabetes mellitus Z83.3 and BMI 25.0-25.9,adult Z68.25 [facility] [address] [address] 03 Aug, 2015 Well woman exam Z01.419 [...] R92.2 and History of genital warts Z86.19 [facility] [address] [place] [address] 14 Sep, 2014 [facility] [address] [place] [address] 13 Sep, 2014 [facility] [id number] [place] [address] Jul, [facility] [address] [address] Jul, [facility] [id number] [address] Jul, [facility] [address] [place] [address] Jul, [facility] [address] [place] [address] Jun, [facility] [address] [address] Jun, [facility] [address] [place] [address] Aug, [facility] [place] [facility] [address] [id number] [place] [address] Aug, [facility] [place] [facility] [address] [id number] [place] [address] Jul, [facility] [place] [facility] [address] [id number] [place] [address] Jul, [facility] [place] [facility] [address] [id number] [place] [address] Apr, [facility] [place] [facility] [address] [id number] [place] [address] Apr, [facility] [place] [facility] [address] [id number] [place] [address] Apr, [facility] [place] [facility] [address] [id number] [place] [address] Apr, [facility] [place] [facility] [address] [id number] [place] [address] Apr, [facility] [place] [facility] [address] [id number] [place] [address] Apr, [facility] [place] [facility] [address] [id number] [place] [address] Jul, [facility] [place] [facility] [address] [id number] [place] [address] Jul, [facility] [place] [facility] [address] [id number] [place] [address] Jun, [facility] [place] [facility] [address] [id number] [place] [address] Jun, [facility] [place] [facility] [address] [id number] [place] [address] May, [facility] [place] [facility] [address] [id number] [place] [address] May, [facility] [place] [facility] [address] [facility] [id number] [place] [address] Apr, [facility] [address] [facility] [id number] [address] Apr, [facility] [address] [facility] [id number] [address] Apr, [facility] [address] [facility] [id number] [address] Apr, [facility] [address] [facility] [id number] [address] October, IMMUNIZATIONS No Known Immunizations SOCIAL HISTORY Never Assessed REASON FOR VISIT pt has been sick since yesterday. simply here for a release to go back to work. [place] per this RN decision...will evaluate et make sure she is stable to return to work. kbullardn PLAN OF CARE VITAL SIGNS Height 61 in 2018-04-05 Weight 146.6 lbs 2018-04-05 Temperature 98.8 degrees Fahrenheit 2018-04-05 Heart Rate 80 bpm 2018-04-05 Respiratory Rate 20 2018-04-05 BMI 27.70 kg/m2 2018-04-05 Blood pressure systolic 118 mmHg 2018-04-05 Blood pressure diastolic 78 mmHg 2018-04-05 MEDICATIONS Medication Instructions Dosage Frequency Start Date End Date Duration Status PredniSONE 20 mg Orally Once a day 2 tablets 24h 5 days Not-Taking Lexapro 10 mg Orally Once a day [...]
--- OUTSIDE RECORDS SUMMARY | 2018-12-02 22:38 | XMS REPORT | Continuity of Care Document ---
Author Organization Unknown Address Unknown Allergies Active Description Code Type Severity Reaction Onset Reported/Identified Relationship to Patient Clinical Status Yes Penicillins Drug Allergy 04/24/2011 Yes Penicillins Drug Allergy N/A N/A 04/24/2011 Yes No Known Drug Allergies [id number] Drug Allergy Unknown N/A 09/07/2017 Medications There is no data. Problems Date [...] visit for: screening exam bact/spirochetal venereal disease 10/26/2009 Ot 599.70 HEMATURIA, UNSPECIFIED 04/24/2011 616.10 Vaginitis Vulvovaginitis Unspecified 04/24/2011 V65.45 [...] INSOMNIA OF CHILDHOOD 04/24/2011 VIK MATTSON DO K V76.2 CERVICAL CANCER SCREENING (PAP SMEAR) 04/24/2011 616.10 Vaginitis Vulvovaginitis Unspecified 04/24/2011 V65.45 Counseling - Std 04/24/2011 V69.5 BEHAVIOR INSOMNIA OF CHILDHOOD 04/24/2011 V76.2 CERVICAL CANCER SCREENING (PAP SMEAR) 04/24/2011 [facility], ULICES A 616.10 Vaginitis Vulvovaginitis Unspecified 04/24/2011 [facility] P[facility] ULICES A V65.45 Counseling - Std 04/24/2011 STELLACynthia CESPEDES ULICES A V69.5 BEHAVIOR INSOMNIA OF CHILDHOOD 04/24/2011 STELLACynthia CESPEDES ULICES A V76.2 CERVICAL CANCER SCREENING [...] CANCER SCREENING (PAP SMEAR) 05/19/2012 V58.69 LONG-TERM (CURRENT) USE OF OTHER MEDICATIONS 05/19/2012 V58.69 LONG-TERM (CURRENT) USE OF OTHER MEDICATIONS 05/19/2012 VIK MATTSON DO V58.69 LONG-TERM (CURRENT) USE OF OTHER MEDICATIONS 05/19/2012 V58.69 LONG-TERM (CURRENT) USE OF OTHER MEDICATIONS 05/19/2012 ULICES DOUGLAS APRN A V58.69 LONG-TERM (CURRENT) USE OF OTHER MEDICATIONS [...] VIRAL 07/25/2012 465.9 UPPER RESPIRATORY INFECTION 07/25/2012 ULICES DOUGLAS APRN A 465.9 UPPER RESPIRATORY INFECTION 07/25/2012 VIK MATTSON DO 465.9 UPPER RESPIRATORY INFECTION 07/25/2012 EL SPRINGER PSYD 465.9 UPPER RESPIRATORY INFECTION 05/06/2013 STELLAULICES Marie APRN A 623.5 LEUKORRHEA NOT SPECIFIED INFECTIVE 05/06/2013 [facility]LLA[facility]ICES LAUREN APRN A V76.10 BREAST CANCER SCREENING 05/06/2013 VIK [...] 311 MO DEPRESS NOS 08/31/2015 CELINA DIAZ APRN Ot N92.6 08/31/2015 CELINA DIAZ APRN Ot R92.8 09/04/2015 CELINA DIAZ [facility] PILOT Ot N92.6 09/04/2015 JAKBARRON ZAFARSAY A [facility] HELIC[employer] PILOT Ot R92.8 09/06/2015 JAKBARRON ZAFARSAY A [facility] HELIC[employer] PILOT Ot N92.6 09/06/2015 JAKOPOBARRON REDDYSAY A EMS HELIC[employer]TER PILOT Ot R92.8 10/30/2015 BARRON DIAZSAY A [facility] HELIC[employer] PILOT Ot N92.6 IRREGULAR MENSTRUATION, UNSPECIFIED 10/30/2015 TAMMIOPOBARRON REDDYSAY A [facility] HEL[employer] PILOT Ot R92.8 OTH ABN AND INCONCLUSIVE FINDINGS ON DX 11/21/2015 TAMMIOPOISAURO REDDYY A [facility] HELIC[employer] PILOT Ot N92.6 IRREGULAR MENSTRUATION, UNSPECIFIED 11/21/2015 JAKOPOBARRON REDDYSAY A [facility] HELIC[employer] PILOT Ot R92.8 OTH ABN AND INCONCLUSIVE FINDINGS ON DX 11/21/2015 TAMMIOPOISAURO REDDYY A EMS HELIC[employer]TER PILOT Ot N92.6 IRREGULAR MENSTRUATION, UNSPECIFIED 11/21/2015 TAMMIOPOBARRON REDDYSAY A EMS HELIC[employer]TER PILOT Ot R92.8 OTH ABN AND INCONCLUSIVE FINDINGS ON DX 12/21/2015 TAMMIOPOISAURO REDDYY A EMS HELICOPTER PILOT Ot N92.6 IRREGULAR MENSTRUATION, UNSPECIFIED 12/21/2015 TAMMIOPOBARRON REDDYSAY A EMS HELIC[employer] PILOT Ot R92.8 OTH ABN AND INCONCLUSIVE FINDINGS ON DX 02/21/2017 ISAURO DIAZY A [facility] HELIC[employer] PILOT Ot N92.6 IRREGULAR MENSTRUATION, UNSPECIFIED 02/21/2017 TAMMIOPOISUARO REDDYY A EMS HELIC[employer] PILOT Ot R92.8 OTH ABN AND INCONCLUSIVE FINDINGS ON DX 02/21/2017 OSMAN RODRÍGUEZ MD Ot R51 HEADACHE 02/21/2017 ISAURO DIAZY A EMS HELIC[employer] PILOT Ot N92.6 IRREGULAR MENSTRUATION, UNSPECIFIED 02/21/2017 JAKOPOBARRON REDDYSAY A EMS HELIC[employer] PILOT Ot R92.8 OTH ABN AND INCONCLUSIVE FINDINGS ON DX 02/24/2017 OSMAN RODRÍGUEZ MD Ot R51 HEADACHE 09/07/2017 OSMAN RODRÍGUEZ MD Ot F32.9 MAJOR DEPRESSIVE DISORDER, SINGLE EPISOD 09/07/2017 OSMAN RODRÍGUEZ MD Ot M54.41 LUMBAGO WITH SCIATICA, RIGHT SIDE 2017 OSMAN RODRÍGUEZ MD Ot F32.9 MAJOR DEPRESSIVE DISORDER, SINGLE EPISOD 2017 OSMAN RODRÍGUEZ MD Ot M54.41 LUMBAGO WITH SCIATICA, RIGHT SIDE 11/14/2017 CELINA DIAZ APRN Ot N92.6 IRREGULAR MENSTRUATION, UNSPECIFIED 11/14/2017 CELINA DIAZ APRN Ot R92.8 OTH ABN AND INCONCLUSIVE FINDINGS ON DX 04/28/2018 OSMAN RODRÍGUEZ MD Ot F32.9 MAJOR DEPRESSIVE DISORDER, SINGLE EPISOD 04/28/2018 OSMAN RODRÍGUEZ MD Ot M54.41 LUMBAGO WITH SCIATICA, RIGHT SIDE Procedures Code Description [place] [address] INFLUENZA A & B (IN-HOUSE) 07/25/2012 18891 GC/CHLAM PROBE ([facility]) 05/06/2013 59340 CULTURE UROGENITAL 05/09/2013 57859 TRICHOMONAS (IN-HOUSE) 05/10/2013 44960 PSYCH DIAGNOSTIC EVALUATION 06/30/2014 Results There is no data. Encounters ACCT No. Visit Date/Time Discharge Status Pt. Type Provider Facility Loc./Unit Complaint [id number] 06/30/2014 08:44:00 06/30/2014 23:59:59 CLS Outpatient EL SPRINGER PSYD [id number] 08/20/2013 14:31:00 08/20/2013 23:59:59 CLS Outpatient VIK MATTSON DO [id number] 05/06/2013 08:29:00 05/06/2013 23:59:59 CLS Outpatient ULICES DOUGLAS APRN [id number] 07/25/2012 12:53:00 07/25/2012 23:59:59 CLS Outpatient [id number] 07/01/2012 13:38:00 07/01/2012 23:59:59 [place] [id number] 05/19/2012 07:46:00 05/19/2012 23:59:59 CLS Outpatient [id number] 05/19/2012 07:46:00 05/19/2012 23:59:59 CLS Outpatient [id number] 09/07/2017 07:27:00 09/07/2017 08:06:00 DIS Outpatient OSMAN RODRÍGUEZ MD [facility] ER BACK PAIN [id number] 02/21/2017 19:06:00 02/21/2017 19:49:00 DIS Emergency ANNE JOHNSON, OSMAN Beck [facility] ER HEADACHE [id number] 08/29/2015 14:08:00 08/29/2015 23:59:59 CLS Outpatient CELINA DIAZ APRN [facility] RAD IRREGULAR MENSES,SCREENING [id number] 11/14/2017 12:25:00 Document Registration [id number] 07/28/2009 15:16:00 Document Registration [id number] 06/30/2018 16:20:00 06/30/2018 23:59:59 CLS Outpatient DESTINEE CHIRINOS [facility] [id number] 02/16/2018 10:53:47 02/16/2018 23:59:59 CLS Outpatient DESTINEE MEZA
[2018-12-02 23:04] LABS: BILIRUBIN,URINE NEGATIVE (NEGATIVE); CLARITY,URINE CLEAR; COLOR,URINE YELLOW; GLUCOSE, URINE (UA) NEGATIVE (NEGATIVE); KETONES,URINE NEGATIVE (NEGATIVE); LEUKOCYTE ESTERASE ,URINE 1+ (NEGATIVE); NITRITE,URINE NEGATIVE (NEGATIVE); PH,URINE 6.5 (5-9); PROTEIN,URINE NEGATIVE (NEGATIVE); UROBILINOGEN,URINE NORMAL (NORMAL)
[2018-12-02 23:11] LABS: BACTERIA,URINE MODERATE /HPF
--- NOTE | 2018-12-02 23:40 | ED GU-Female ---
General Chief Complaint: - Urinary Stated Complaint: VOMITING Nursing Triage Note: Pt amb to room #5 w/o difficulty. a&ox4. c/o nausea and abdnormal vaginal bleeding that began yesterday. Pt reports she has not has a menstaul cycle in approx x4 years. Reports yesterday "dark brown" bleeding began upon urination. Pt states, "I get little sharp, cramps in my uterus." Denies emesis, but reports severe nausea. Nursing Sepsis Screen: No Definite Risk Source: patient Exam Limitations: no limitations History of Present Illness Date Seen by Provider: Dec 02, 2018 Time Seen by Provider: 23:03 Initial Comments This 43-year-old woman presents to the emergency room with complaints of discomfort in the pelvic region accompanied by nausea, chills, and a cramping sensation, almost like a menstrual cycle. She started feeling ill yesterday. She has been nauseated and vomited yesterday but not today. She has had increased sleepiness as well. She has noticed over the past 2 days some blood on the toilet paper after urinating and some blood on a panty liner. She thought there were also some small clots in the toilet after urinating. She has not been sexually active for 3 years and denies ever having an abnormal Pap smear. Her last Pap smear was about 2 years ago. She denies any diarrhea or constipation. She chronically has soft stools since her cholecystectomy. She has had no change in bowel habits today. Allergies and Home Medications Allergies Coded Allergies: No Known Drug Allergies (Unverified , 09/07/17) Home Medications Cephalexin 500 Mg Capsule, 500 MG PO TID Prescribed by: AMA PALMA on 12/02/18 2342 Phenazopyridine HCl 200 Mg Tablet, 1 TAB PO TID PRN for PAIN-MODERATE TO SEVERE Prescribed by: AMA PALMA on 12/02/18 2342 Patient Home Medication List Home Medication List Reviewed: Yes Review of Systems Review of Systems Constitutional: see HPI EENTM: no symptoms reported Respiratory: no symptoms reported Cardiovascular: no symptoms reported Gastrointestinal: see HPI Genitourinary: see HPI : No Musculoskeletal: no symptoms reported Skin: no symptoms reported Psychiatric/Neurological: No Symptoms Reported Endocrine: No Symptoms Reported Hematologic/Lymphatic: No Symptoms Reported Past Cqckoxq-Ljsprk-Ldzkdt Hx Past Med/Social Hx: Reviewed and Corrections made Patient Social History Alcohol Use: Rarely Uses Number of Drinks Today: 1 Alcohol Beverage of Choice: Beer Recreational Drug Use: No Smoking Status: Never a Smoker 2nd Hand Smoke Exposure: No Recent Foreign Travel: No Contact w/Someone Who Travel: No Recent Infectious Disease Expo: No Seasonal Allergies Seasonal Allergies: No Past Medical History Surgeries: Yes (Ear & Eye) Ear Surgery, Eye Surgery, Gallbladder, Tonsillectomy Respiratory: No Cardiac: No Neurological: No : No Genitourinary: No Gastrointestinal: No Musculoskeletal: No Endocrine: No HEENT: No Cancer: No Psychosocial: Yes Anxiety, Depression Integumentary: No Physical Exam Vital Signs Vital Signs - First Documented 12/02/18 22:36 Temp 98.0 Pulse 60 Resp 17 B/P (MAP) 140/85 (103) Pulse Ox 96 O2 Delivery Room Air Capillary Refill : Less Than 3 Seconds Height, Weight, BMI Height: 5'1.00" Weight: 150lbs. oz. 68.122662tb; BMI Method:Stated General Appearance: WD/WN, no apparent distress HEENT: normal ENT inspection Neck: normal inspection Cardiovascular: regular rate, rhythm, no edema, no murmur Respiratory: lungs clear, normal breath sounds, no respiratory distress, no accessory muscle use Gastrointestinal: normal bowel sounds, soft, tenderness (suprapubic) Extremities: normal inspection, no pedal edema Neurologic/Psychiatric: on call II-XII nml as tested, no motor/sensory deficits, alert, normal mood/affect, oriented x 3 Skin: normal color, warm/dry Progress/Results/Core Measures Suspected Sepsis Recent Fever Within 48 Hours: No Infection Criteria Present: None New/Unexplained Altered Menta: No Sepsis Screen: No Definite Risk SIRS Temperature:98.0 Pulse: 60 Respiratory Rate: 17 Blood Pressure 140 /85 Mean: 103 Results/Orders Lab Results Laboratory Tests Test 12/02/18 22:40 Range/Units Urine Color YELLOW Urine Clarity CLEAR Urine pH 6.5 5-9 Urine Specific [place] 1.010 L 1.016-1.022 Urine Protein NEGATIVE NEGATIVE Urine Glucose (UA) NEGATIVE NEGATIVE Urine Ketones NEGATIVE NEGATIVE Urine Nitrite NEGATIVE NEGATIVE Urine Bilirubin NEGATIVE NEGATIVE Urine Urobilinogen NORMAL NORMAL MG/DL Urine Leukocyte Esterase 1+ H NEGATIVE Urine RBC (Auto) 5+ H NEGATIVE Urine RBC NONE /HPF Urine WBC 5-10 H /HPF Urine Squamous Epithelial Cells 2-5 /HPF Urine Crystals NONE /LPF Urine Bacteria MODERATE H /HPF Urine Casts NONE /LPF Urine Mucus NEGATIVE /LPF Urine Culture Indicated YES My Orders Orders - AMA COY MD Ua Culture If Indicated (12/02/18 22:51) Urine Bedside (12/02/18 22:52) Urine Culture (12/02/18 22:40) Cephalexin Capsule (Keflex Capsule) (12/02/18 23:45) Phenazopyridine Tablet (Pyridium Tablet) (12/02/18 23:45) Ondansetron Oral Dissolve Tab (Zofran (12/02/18 23:45) Medications Given in ED Current Medications Medications Dose Ordered Sig/Rosalee Route Start Time Stop Time Status Last Admin Dose Admin Cephalexin HCl 500 mg ONCE ONCE PO 12/02/18 23:45 12/02/18 23:46 DC 12/02/18 23:46 500 MG Ondansetron HCl 4 mg ONCE ONCE SL 12/02/18 23:45 12/02/18 23:46 DC 12/02/18 23:46 4 MG Phenazopyridine HCl 200 mg ONCE ONCE PO 12/02/18 23:45 12/02/18 23:46 DC 12/02/18 23:46 200 MG Vital Signs/I&O 12/02/18 12/02/18 22:36 23:45 Temp 98.0 98.0 Pulse 60 62 Resp 17 16 B/P (MAP) 140/85 (103) 129/79 (96) Pulse Ox 96 98 O2 Delivery Room Air Room Air Capillary Refill : Less Than 3 Seconds Blood Pressure Mean: 103 Progress Note : Progress Note UA was suggestive of urinary tract infection. She was treated with Keflex and Pyridium. Zofran was given before the other medications because of her nausea complaint. Patient was at low risk for STI or cervical dysplasia. Pelvic exam was not performed but she was advised to seek pelvic exam if symptoms did not clear with antibiotic therapy. Departure Impression Primary Impression: Urinary tract infection Qualified Codes: N39.0 - Urinary tract infection, site not specified Additional Impression: Pelvic pain Disposition: 01 HOME, SELF-CARE Condition: Improved Departure-Patient Inst. Referrals: NO,LOCAL PHYSICIAN (PCP/Family) Primary Care Physician Patient Instructions: Urinary Tract Infection, Adult (DC) Add. Discharge Instructions: Drink plenty of clear liquids. Complete antibiotics as prescribed. Follow-up with your primary care provider within the next week to review urine culture results. If antibiotic therapy does not resolve your symptoms, discuss having a pelvic exam performed by your primary care clinic. Return to care if you have worsening symptoms or develop new symptoms such as fever. All discharge instructions reviewed with patient and/or family. Voiced understanding. Scripts Phenazopyridine HCl (Pyridium) 200 Mg Tablet 1 TAB PO TID PRN for PAIN-MODERATE TO SEVERE, #10 TAB Prov: AMA COY MD 12/02/18 Cephalexin (Keflex) 500 Mg Capsule 500 MG PO TID, #20 CAP Prov: AMA COY MD 12/02/18 Copy Copies To 1: CHARBEL MCADAMS MD, JOSHUA T MD Dec 02, 2018 23:39
[2018-12-02] MEDS ORDERED: PHEN-640 PO (23:42)
[2018-12-02] MEDS ORDERED: CEPH-507 PO (23:42)
[2018-12-02 23:45] VITALS: BP 129/79
[2018-12-02] MEDS ORDERED: CEPHALEXIN 250 MG (KEFLEX) CAP PO ONE (23:45)
[2018-12-02] MEDS ORDERED: PHENAZOPYRIDINE 100 MG (PYRIDIUM) TABLET PO ONE (23:45)
[2018-12-02] MEDS ORDERED: ONDANSETRON 4 MG (ZOFRAN) ORAL DISSOLVE TAB SL ONE (23:45)
== END 2018-12-02 23:48 | disposition home or self-care (01) ==
LOC: EDUNIT# 22:31 → ER 22:33
DX: N39.0 Urinary tract infection, site not specified (principal); F41.9 Anxiety disorder, unspecified; F32.9 Major depressive disorder, single episode, unspecified; Z90.49 Acquired absence of other specified parts of digestive tract; Z90.89 Acquired absence of other organs
CPT/HCPCS: 81000; 84703; 87088; 99283

== ENCOUNTER 2023-05-15 14:12 | Emergency (ER) | payer SELFPAY ==
[~2023-05-15 14:12] MED LIST changes: -ACET-2469; +ACET-3075; +CEPH-507 PO; +PHEN-640 PO
[2023-05-15] MEDS ORDERED: fentaNYL INJECTION 100 MCG/2 ML VIAL IVP ONE (14:45)
[2023-05-15 14:49] LABS: BASOPHILS % (AUTO) 1 % (0-10); EOSINOPHILS # (AUTO) 0.1 10^3/uL (0.0-0.3); EOSINOPHILS % (AUTO) 1 % (0-10); HEMATOCRIT 41 % (35-52); HEMOGLOBIN 15.1 g/dL (11.5-16.0); LYMPHOCYTES # (AUTO) 2.4 10^3/uL (1.0-4.0); LYMPHOCYTES % (AUTO) 40 % (12-44); MEAN CORPUSCULAR HEMOGLOBIN 33 pg (25-34); MEAN CORPUSCULAR HGB CONC 37 g/dL (32-36); MEAN CORPUSCULAR VOLUME 88 fL (80-99); MEAN PLATELET VOLUME 10.6 fL (9.0-12.2); MONOCYTES # (AUTO) 0.5 10^3/uL (0.0-1.0); MONOCYTES % (AUTO) 9 % (0-12); NEUTROPHILS # (AUTO) 2.9 10^3/uL (1.8-7.8); NEUTROPHILS % (AUTO) 49 % (42-75); PLATELET COUNT 217 10^3/uL (130-400); WHITE BLOOD COUNT 5.9 10^3/uL (4.3-11.0)
[2023-05-15 14:50] LABS: BACTERIA,URINE NEGATIVE /HPF; BILIRUBIN,URINE NEGATIVE (NEGATIVE); CLARITY,URINE CLEAR; COLOR,URINE YELLOW; GLUCOSE, URINE (UA) NEGATIVE (NEGATIVE); KETONES,URINE NEGATIVE (NEGATIVE); LEUKOCYTE ESTERASE ,URINE NEGATIVE (NEGATIVE); NITRITE,URINE NEGATIVE (NEGATIVE); PROTEIN,URINE NEGATIVE (NEGATIVE); SQUAMOUS EPITHELIAL CELL,UR RARE /HPF
[2023-05-15 14:52] LABS: ALBUMIN 4.2 GM/DL (3.2-4.5); POTASSIUM 3.7 MMOL/L (3.6-5.0)
[2023-05-15 14:54] LABS: CALCIUM 9.6 MG/DL (8.5-10.1)
[2023-05-15 14:55] LABS: TOTAL PROTEIN 7.5 GM/DL (6.4-8.2)
[2023-05-15 14:57] LABS: BILIRUBIN,TOTAL 0.5 MG/DL (0.1-1.0)
[2023-05-15 14:59] LABS: CREATININE SERUM 0.88 MG/DL (0.60-1.30)
[2023-05-15] MEDS ORDERED: LIDOCAINE 2% w/EPI 1:200,000 20 ML VIAL ONE (15:04)
--- NOTE | 2023-05-15 15:35 | ED General ---
General Chief Complaint: General Problems/Pain Stated Complaint: HEADACHE | LOWER RT BACK PAIN | Nursing Triage Note: PT AMB TO RM8 PT CO OF MENDES AND R LOWER BACK PAIN RATES 10/10 AT TIMES. PT STATES ALSO HAS SMALL BUMP ON RECTUM SHE HAS HAD FOR A FEW DAYS Source of Information: Patient Exam Limitations: No Limitations History of Present Illness Date Seen by Provider: May 15, 2023 Time Seen by Provider: 14:35 Initial Comments George is a 47-year-old woman who presents to the emergency room with complaints of a "bump near the rectum" for 4 days. It has become painful. She has been trying Preparation H because she assumed it was a hemorrhoid. This has not been helpful. Pain is worse with bowel movements and is better with standing. She woke this morning with fairly intense headache and nausea which she presumes to be related. She states it broke open shortly before this encounter and has been bleeding. She denies fever or chills. She denies as she is not sexually active. She denies vaginal or urinary symptoms. Allergies and Home Medications Allergies Coded Allergies: Penicillins (Verified Allergy, Unknown, 12/03/18) Uncoded Allergies: general anesthesia (Adverse Reaction, Unknown, Vomiting, 12/03/18) Causes nausea, vomiting, and prolonged excessive sleepiness Patient Home Medication List Home Medication List Reviewed: Yes Acetaminophen/Diphenhydramine (Tylenol Pm Ex-Strength Caplet) 1 Each Tablet, (Reported) Entered as Reported by: BOB WARD on 09/07/17 0748 Cephalexin (Keflex) 500 Mg Capsule, 500 MG PO TID Prescribed by: AMA PALMA on 12/02/18 2342 Hydrocodone/Acetaminophen (Hydrocodone-Acetamin 5-325 mg) 5 Mg-325 Mg Tablet, 1 TAB PO Q4H PRN for PAIN-MODERATE (5-7) Prescribed by: AMA PALMA on 05/15/23 1709 Phenazopyridine HCl (Pyridium) 200 Mg Tablet, 1 TAB PO TID PRN for PAIN-MODERATE TO SEVERE Prescribed by: AMA PALMA on 12/02/18 2342 Review of Systems Review of Systems Constitutional: no symptoms reported EENTM: no symptoms reported Respiratory: no symptoms reported Cardiovascular: no symptoms reported Gastrointestinal: see HPI Genitourinary: see HPI : No Musculoskeletal: no symptoms reported Skin: see HPI Psychiatric/Neurological: See HPI Hematologic/Lymphatic: No Symptoms Reported Immunological/Allergic: no symptoms reported Past Dsijchh-Sacedj-Wwhumy Hx Patient Social History Tobacco Use?: No Substance use?: No Alcohol Use?: No Pt feels they are or have been: No Immunizations Up To Date Influenza Vaccine Up-to-Date: No; Not Current First/Initial COVID19 Vaccinat: YES Second COVID19 Vaccination Hitesh: YES Seasonal Allergies Seasonal Allergies: No Past Medical History Surgery/Hospitalization HX: EYE, EAR, T AND A, Surgeries: Yes (Ear & Eye) Ear Surgery, Eye Surgery, Gallbladder, Tonsillectomy Respiratory: No Cardiac: No Neurological: No : No Reproductive Disorders: No Genitourinary: No Gastrointestinal: No Musculoskeletal: No Endocrine: No HEENT: No Cancer: No Psychosocial: Yes Anxiety, Depression Integumentary: No Physical Exam Vital Signs Vital Signs - First Documented 05/15/23 14:20 Temp 36.2 Pulse 70 Resp 18 B/P (MAP) 153/78 (103) Pulse Ox 97 Capillary Refill : Height, Weight, BMI Height: 5'1.00" Weight: 150lbs. oz. 68.312445bj; BMI Method:Stated General Appearance: No Apparent Distress, WD/WN HEENT: PERRL/EOMI, Normal ENT Inspection Neck: Normal Inspection Respiratory: Lungs Clear, Normal Breath Sounds, No Accessory Muscle Use Cardiovascular: Regular Rate, Rhythm, No Edema, No Murmur Gastrointestinal: Normal Bowel Sounds, Non Tender, Soft Rectal: Other (thrombosed external hemorrhoid at about the 5 o'clock position. Associated TTP and slight bleeding from a necrotic center.) Extremity: Normal Inspection Neurologic/Psychiatric: Alert, Oriented x3, No Motor/Sensory Deficits, Normal Mood/Affect Skin: Normal Color, Warm/Dry, Other (as above) Procedures/Interventions Progress Evacuation of thrombosed hemorrhoid Risks and benefits of procedure were discussed. George elected to proceed with the procedure. She was placed in the right lateral decubitus position. Skin over and around the hemorrhoid was cleaned with alcohol. Approximately 0.5 mL of 2% lidocaine with epi was injected for anesthetic. Betadine prep was applied. An elliptical incision was made around the thrombosed skin on the surface of the external hemorrhoid. The excised skin was removed and clots were evacuated using hemostats and manual pressure. A small wick of 1/4 inch plain packing was placed inside the hemorrhoid cavity. Bulky gauze dressing was placed over the hemorrhoid and taped in place across the buttocks. Patient had been pretreated with fentanyl and treated with hydrocodone and toradol after the procedure. Progress/Results/Core Measures Suspected Sepsis SIRS Temperature: Pulse: 70 Respiratory Rate: 18 Laboratory Tests 05/15/23 14:25: White Blood Count 5.9 Blood Pressure 153 /78 Mean: 103 Laboratory Tests 05/15/23 14:25: Creatinine 0.88, Platelet Count 217, Total Bilirubin 0.5 Results/Orders Lab Results Laboratory Tests Test 05/15/23 14:25 05/15/23 14:31 Range/Units White Blood Count 5.9 4.3-11.0 10^3/uL Red Blood Count 4.64 3.80-5.11 10^6/uL Hemoglobin 15.1 11.5-16.0 g/dL Hematocrit 41 35-52 % Mean Corpuscular Volume 88 80-99 fL Mean Corpuscular Hemoglobin 33 25-34 pg Mean Corpuscular Hemoglobin Concent 37 H 32-36 g/dL Red Cell Distribution Width 12.1 10.0-14.5 % Platelet Count 217 130-400 10^3/uL Mean Platelet Volume 10.6 9.0-12.2 fL Immature Granulocyte % (Auto) 0 % Neutrophils (%) (Auto) 49 42-75 % Lymphocytes (%) (Auto) 40 12-44 % Monocytes (%) (Auto) 9 0-12 % Eosinophils (%) (Auto) 1 0-10 % Basophils (%) (Auto) 1 0-10 % Neutrophils # (Auto) 2.9 1.8-7.8 10^3/uL Lymphocytes # (Auto) 2.4 1.0-4.0 10^3/uL Monocytes # (Auto) 0.5 0.0-1.0 10^3/uL Eosinophils # (Auto) 0.1 0.0-0.3 10^3/uL Basophils # (Auto) 0.0 0.0-0.1 10^3/uL Immature Granulocyte # (Auto) 0.0 0.0-0.1 10^3/uL Sodium Level 141 135-145 MMOL/L Potassium Level 3.7 3.6-5.0 MMOL/L Chloride Level 105 98-107 MMOL/L Carbon Dioxide Level 26 21-32 MMOL/L Anion Gap 10 5-14 MMOL/L Blood Urea Nitrogen 13 7-18 MG/DL Creatinine 0.88 0.60-1.30 MG/DL Estimat Glomerular Filtration Rate 81 BUN/Creatinine Ratio 15 Glucose Level 97 70-105 MG/DL Calcium Level 9.6 8.5-10.1 MG/DL Corrected Calcium 9.4 8.5-10.1 MG/DL Total Bilirubin 0.5 0.1-1.0 MG/DL Aspartate Amino Transf (AST/SGOT) 23 5-34 U/L Alanine Aminotransferase (ALT/SGPT) 23 0-55 U/L Alkaline Phosphatase 99 40-136 U/L C-Reactive Protein High Sensitivity 0.34 0.00-0.50 MG/DL Total Protein 7.5 6.4-8.2 GM/DL Albumin 4.2 3.2-4.5 GM/DL Urine Color YELLOW Urine Clarity CLEAR Urine pH 5.0 5-9 Urine Specific [place] <=1.005 1.016-1.022 Urine Protein NEGATIVE NEGATIVE Urine Glucose (UA) NEGATIVE NEGATIVE Urine Ketones NEGATIVE NEGATIVE Urine Nitrite NEGATIVE NEGATIVE Urine Bilirubin NEGATIVE NEGATIVE Urine Urobilinogen 0.2 < = 1.0 MG/DL Urine Leukocyte Esterase NEGATIVE NEGATIVE Urine RBC (Auto) NEGATIVE NEGATIVE Urine RBC NONE /HPF Urine WBC NONE /HPF Urine Squamous Epithelial Cells RARE /HPF Urine Crystals NONE /LPF Urine Bacteria NEGATIVE /HPF Urine Casts NONE /LPF Urine Mucus NEGATIVE /LPF Urine Culture Indicated NO My Orders Orders - AMA COY MD Ua Culture If Indicated (05/15/23 14:29) Fentanyl Injection (Fentanyl Injection (05/15/23 14:45) Cbc And Automated Diff (05/15/23 14:42) Comprehensive Metabolic Panel (05/15/23 14:42) Hs C Reactive Protein (05/15/23 14:42) Ed Iv/Invasive Line Start (05/15/23 14:42) Lidocaine 2% W/Epi 1:200,000 (Xylocaine/ (05/15/23 15:04) Hydrocodone/Apap 5/325 Tablet (Hydrocod (05/15/23 16:45) Ketorolac Injection (Ketorolac Injection (05/15/23 16:45) Medications Given in ED Vital Signs/I&O 05/15/23 05/15/23 14:20 17:29 Temp 36.2 36.2 Pulse 70 70 Resp 18 18 B/P (MAP) 153/78 (103) 153/78 Pulse Ox 97 97 Capillary Refill : Blood Pressure Mean: 103 Progress Note : Progress Note Patient was treated with fentanyl. An external thrombosed hemorrhoid was identified as the source of her pain. Due to her other symptoms, labs were obtained, reviewed, and interpreted by me. CBC, CMP, CRP, and urinalysis were all unremarkable by my interpretation. Treatment options were discussed. Patient elected to proceed with excisional evacuation of the thrombosed hemorrhoid. See separate procedure section. She was given Toradol and hydrocodone postprocedure. See discharge instructions for further discussion. Departure Impression Primary Impression: Thrombosed external hemorrhoid Additional Impression: Acute headache Qualified Codes: R51.9 - Headache, unspecified Disposition: HOME, SELF-CARE Condition: Improved Departure-Patient Inst. Decision time for Depature: 16:39 Referrals: [facility] [place] (PCP/Family) Primary Care Physician Patient Instructions: Hemorrhoids ED Add. Discharge Instructions: You may use ibuprofen up to 600 mg every 6 hours as needed for primary pain control. Add either Tylenol (acetaminophen) 1000 mg every 6 hours or hydrocodone as pre scribed for breakthrough pain. Avoid driving, operating machinery, or making important decisions while on hydrocodone as it may cause drowsiness and impact decision making. Perform sitz bath's for 15 to 30 minutes in warm soapy water 2-4 times per day for the first few days. Use a few squirts of the antibacterial chlorhexidine soap provided in the bath water. You may perform your for sitz bath tonight. If the small strip of packing is still in the hemorrhoid, simply pull it out. This packing will feel like a tiny piece of shoestring and should pull out very easily. You may use gauze pads over the excision site to absorb any bleeding. Avoid wiping for 3 or 4 days as this may cause irritation and more bleeding. Instead of wiping, try to rinse with warm soapy water either with a squirt bottle or in the shower. Then blot dry with a clean towel. Do not rub or wipe the skin. You may continue using soothing topical medications such as Preparation H per package instructions. Try to keep your stools soft. You may use an gugm-kpt-iiyosqu stool softener such as Colace. Drink plenty of clear liquids and eat a high-fiber diet. Preventing constipation is the best way to prevent recurrence of hemorrhoids and hemorrhoid complications. Return to care if you have worsening symptoms or develop new symptoms such as fever. All discharge instructions reviewed with patient and/or family. Voiced understanding. Scripts Hydrocodone/Acetaminophen (Hydrocodone-Acetamin 5-325 mg) 5 Mg-325 Mg Tablet 1 TAB PO Q4H PRN for PAIN-MODERATE (5-7), #8 TAB Prov: AMA COY MD 05/15/23 Copy Copies To 1: [facility] [place] AMA COY MD May 15, 2023 15:35
[2023-05-15] MEDS ORDERED: KETOROLAC INJ 30 MG/ML VIAL IVP ONE (16:45)
[2023-05-15] MEDS ORDERED: HYDROcodone/ACETAMINOPHEN 5 MG/325 MG TABLET PO ONE (16:45)
[2023-05-15] MEDS ORDERED: ACHD5005 PO (17:08)
[2023-05-15 17:29] VITALS: BP 153/78
== END 2023-05-15 17:28 | disposition home or self-care (01) ==
LOC: EDUNIT# 14:12 → ER 14:15
DX: K64.5 Perianal venous thrombosis (principal); R51.9 Headache, unspecified
CPT/HCPCS: 36415; 80053; 81000; 85025; 86141